=== PATIENT | male | born 1995 | race Caucasian/White ===

== ENCOUNTER → 2020-05-21 | Outpatient (CLI) | payer OTHER ==
[~2020-05-21] MED LIST: IBUP-2029 PO
== END | disposition home or self-care (01) ==
LOC: LAB 16:38
DX: Z01.818 Encounter for other preprocedural examination (principal); Z11.59 Encounter for screening for other viral diseases
CPT/HCPCS: C9803; U0003

== ENCOUNTER 2020-05-23 05:25 | Day surgery (SDC) | payer OTHER ==
[~2020-05-23] VITALS: Ht 170.2 cm; Wt 65.8 kg
[2020-05-23] MEDS ORDERED: LACTATED RINGERS 1,000 ML IV SCH (07:30)
[2020-05-23] MEDS ORDERED: BUPIVACAINE/EPINEPH/PF 0.25%/0.0005 10ML ONE (07:34)
[2020-05-23] MEDS ORDERED: SODIUM CHLORIDE 0.9% 10ML VIAL ONE (07:35)
[2020-05-23] MEDS ORDERED: BACITRACIN 50,000 UNITS/VIAL ONE (07:35)
[2020-05-23] MEDS ORDERED: FENTANYL CITRATE/PF 50MCG/ML 2ML VIAL ONE (09:15)
[2020-05-23] MEDS ORDERED: SUCCINYLCHOLINE CHLORIDE 200MG/10ML IV ONE (09:16)
[2020-05-23] MEDS ORDERED: MIDAZOLAM HCL 2 MG/2 ML VIAL ONE (09:16)
[2020-05-23] MEDS ORDERED: PROPOFOL 200MG/20ML VIAL IV ONE (09:16)
[2020-05-23] MEDS ORDERED: GLYCOPYRROLATE 0.2 MG/ML 2ML VIAL ONE (09:16)
[2020-05-23] MEDS ORDERED: LIDOCAINE HCL 1% 20ML VIAL (Pyxis) INJ ONE (09:16)
[2020-05-23] MEDS ORDERED: ONDANSETRON HCL 4MG/2ML INJ ONE (09:16)
[2020-05-23] MEDS ORDERED: METOCLOPRAMIDE HCL 10MG/2ML VIAL ONE (09:16)
[2020-05-23] MEDS ORDERED: CEFAZOLIN SODIUM 1000MG/VIAL ONE (10:21)
[2020-05-23] MEDS ORDERED: SODIUM CHLORIDE 0.9% 1,000 ML IV ONE (10:34)
[2020-05-23] MEDS ORDERED: MORPHINE SULFATE 2 MG/ML CPJ (NOT FOR IM USE) IV PRN (10:45)
[2020-05-23] MEDS ORDERED: HYDROMORPHONE HCL/PF 2MG/ML CPJ IV PRN (10:45)
[2020-05-23] MEDS ORDERED: ONDANSETRON HCL 4MG/2ML INJ IV PRN (10:45)
[2020-05-23] MEDS ORDERED: MEPERIDINE HCL/PF 25MG/ML CPJ IV PRN (10:45)
[2020-05-23] MEDS ORDERED: HYDROCODONE/ACETAMINOPHEN 10/325MG TABLET PO PRN (11:15)
[2020-07-09] MEDS ORDERED: IBUP-2029 PO (03:45)
== END 2020-05-23 12:20 | disposition home or self-care (01) ==
LOC: OR 05:25
PROVIDERS: ATTEND Orthopaedic Surgery
DX: M70.51 Other bursitis of knee, right knee (principal); M79.89 Other specified soft tissue disorders; Z79.899 Other long term (current) drug therapy; Z98.890 Other specified postprocedural states
CPT/HCPCS: 27340; 87070; 87075; 87102; 87116; 87205; 97116; 97162; J0171; J0330; J0690; J2250; J2405; J2704; J2765; J3010; J3490; Q4051; 88311

== ENCOUNTER 2020-07-29 11:47 | Inpatient (IN) | payer OTHER ==
[~2020-07-29] VITALS: Ht 167.6 cm; Wt 69.0 kg
[~2020-07-29 11:47] MED LIST changes: +INFLUENZA VACCINE 05/PF 0.5 ML VIAL IM ONE
[2020-07-29 13:25] LABS: CHLORIDE 103 mEq/L (98-107)
[2020-07-29 13:42] LABS: BASOPHILS % 0.6 % (0.0-2.0); EOSINOPHILS % 0.8 % (0.0-5.0); HEMATOCRIT. 37.6 % (42.0-52.0); HEMOGLOBIN. 12.7 g/dL (14.0-18.0); LYMPHOCYTES % 15.5 % (20.0-50.0); MEAN CORPUSCULAR HEMOGLOBIN 31.2 pg (28.0-32.0); MEAN CORPUSCULAR VOLUME 92.4 fL (80.0-94.0); MONOCYTES % 5.1 % (2.0-8.0); PLATELET 275 x1000/uL (130-400); RED BLOOD CELL COUNT 4.07 mill/uL (4.7-6.1); RED CELL DISTRIBUTION WIDTH 13.2 % (11.6-14.6)
[2020-07-29 13:54] LABS: PROTHROMBIN TIME 10.4 sec (9.6-11.0)
[2020-07-29] MEDS ORDERED: ACETAMINOPHEN 325MG TABLET PO PRN (15:15)
[2020-07-29 16:00] VITALS: BP 113/53
[2020-07-29] MEDS ORDERED: CHLORHEXIDINE GLUCONATE 4% EXTERNAL USE TOP NR (16:00)
[2020-07-29] MEDS ORDERED: CEFAZOLIN 2,000 MG in DEXT 5% WATER 100 ML IV SCH (16:00)
[2020-07-29 18:20] VITALS: BP 112/74
[2020-07-29] MEDS ORDERED: CEPH-569 PO (18:20)
[2020-07-29 20:00] VITALS: BP 114/70
[2020-07-29] MEDS: CEFAZOLIN 2,000 MG in DEXT 5% WATER 100 ML IV SCH (20:27)
[2020-07-29] MEDS ORDERED: ZOLPIDEM TARTRATE 5MG TABLET PO PRN (21:00)
[2020-07-30] VITALS: BP 117/56
[2020-07-30] MEDS: CEFAZOLIN 2,000 MG in DEXT 5% WATER 100 ML IV SCH ×3 (02:35→18:00)
[2020-07-30 04:00] VITALS: BP 127/69
[2020-07-30 08:00] VITALS: BP 121/60
[2020-07-30 12:00] VITALS: BP 118/72
[2020-07-30] MEDS ORDERED: HYDROCODONE/ACETAMINOPHEN 5/325MG TABLET PO PRN (13:15)
[2020-07-30] MEDS ORDERED: ONDANSETRON HCL 4MG/2ML INJ IV PRN ×3 (13:15→21:30)
[2020-07-30 16:00] VITALS: BP 123/67
[2020-07-30] MEDS ORDERED: FENTANYL CITRATE/PF 50MCG/ML 2ML VIAL ONE (20:01)
[2020-07-30] MEDS ORDERED: ONDANSETRON HCL 4MG/2ML INJ ONE (20:02)
[2020-07-30] MEDS ORDERED: GLYCOPYRROLATE 0.2 MG/ML 2ML VIAL ONE (20:02)
[2020-07-30] MEDS ORDERED: SUCCINYLCHOLINE CHLORIDE 200MG/10ML IV ONE (20:02)
[2020-07-30] MEDS ORDERED: LIDOCAINE HCL 1% 20ML VIAL (Pyxis) INJ ONE (20:02)
[2020-07-30] MEDS ORDERED: MIDAZOLAM HCL 2 MG/2 ML VIAL ONE (20:02)
[2020-07-30] MEDS ORDERED: METOCLOPRAMIDE HCL 10MG/2ML VIAL ONE (20:02)
[2020-07-30] MEDS ORDERED: BACITRACIN 50,000 UNITS/VIAL ONE (20:26)
[2020-07-30] MEDS ORDERED: VANCOMYCIN HCL 1 GM/VIAL ONE (20:40)
[2020-07-30] MEDS ORDERED: SODIUM CHLORIDE 0.9% 1,000 ML IV ONE (21:30)
[2020-07-30] MEDS ORDERED: MORPHINE SULFATE 4 MG/ML CPJ (NOT FOR IM USE) IV PRN (21:30)
[2020-07-30] MEDS ORDERED: MAGNESIUM HYDROXIDE 400MG/5ML 30ML UDC PO PRN (21:30)
[2020-07-30] MEDS ORDERED: ZOLPIDEM TARTRATE 5MG TABLET PO PRN (21:30)
[2020-07-30] MEDS ORDERED: HYDROCODONE/ACETAMINOPHEN 10/325MG TABLET PO PRN (21:30)
[2020-07-30] MEDS ORDERED: CEFAZOLIN 2,000 MG in DEXT 5% WATER 100 ML IV SCH (21:30)
[2020-07-30] MEDS ORDERED: HYDROMORPHONE HCL/PF 2MG/ML CPJ IV PRN (21:30)
[2020-07-30] MEDS ORDERED: ACETAMINOPHEN 325MG TABLET PO PRN (21:30)
[2020-07-30] MEDS ORDERED: MEPERIDINE HCL/PF 25MG/ML CPJ IV PRN ×2 (21:30)
[2020-07-30] MEDS ORDERED: MORPHINE SULFATE 2 MG/ML CPJ (NOT FOR IM USE) IV PRN (21:30)
[2020-07-31] VITALS: BP 116/66
[2020-07-31] MEDS: CEFAZOLIN 2,000 MG in DEXT 5% WATER 100 ML IV SCH ×3 (03:45→21:04)
[2020-07-31 04:00] VITALS: BP 125/69
[2020-07-31 08:00] VITALS: BP 120/68
[2020-07-31] MEDS: DOCUSATE SODIUM 100MG CAPSULE PO SCH ×2 (09:30→17:45)
[2020-07-31 12:00] VITALS: BP 117/70
[2020-07-31 16:00] VITALS: BP 113/71
[2020-07-31 20:00] VITALS: BP 122/58
[2020-08-01] VITALS: BP 119/69
[2020-08-01 04:00] VITALS: BP 121/74
[2020-08-01] MEDS: CEFAZOLIN 2,000 MG in DEXT 5% WATER 100 ML IV SCH ×3 (04:22→17:28)
[2020-08-01 08:00] VITALS: BP 121/71
[2020-08-01] MEDS: DOCUSATE SODIUM 100MG CAPSULE PO SCH ×2 (08:54→17:27)
[2020-08-01 12:00] VITALS: BP 103/60
[2020-08-01 16:00] VITALS: BP 109/66
[2020-08-01 20:00] VITALS: BP 107/62
[2020-08-02] VITALS: BP 107/59
[2020-08-02] MEDS: CEFAZOLIN 2,000 MG in DEXT 5% WATER 100 ML IV SCH ×3 (03:12→17:52)
[2020-08-02 04:00] VITALS: BP 103/57
[2020-08-02 08:00] VITALS: BP 123/80
[2020-08-02] MEDS: DOCUSATE SODIUM 100MG CAPSULE PO SCH ×2 (08:57→16:27)
[2020-08-02 11:01] LABS: BASOPHILS % 0.9 % (0.0-2.0); EOSINOPHILS % 1.9 % (0.0-5.0); HEMATOCRIT. 38.1 % (42.0-52.0); LYMPHOCYTES % 24.9 % (20.0-50.0); MEAN CORPUSCULAR HEMOGLOBIN 31.3 pg (28.0-32.0); MEAN CORPUSCULAR VOLUME 91.6 fL (80.0-94.0); MEAN PLATELET VOLUME 9.9 fl (7.4-10.4); MONOCYTES % 14.2 % (2.0-8.0); NEUTROPHILS % 58.1 % (40.0-76.0); PLATELET 238 x1000/uL (130-400); RED BLOOD CELL COUNT 4.15 mill/uL (4.7-6.1); RED CELL DISTRIBUTION WIDTH 13.2 % (11.6-14.6)
[2020-08-02 11:30] LABS: CHLORIDE 103 mEq/L (98-107)
[2020-08-02 12:00] VITALS: BP 127/70
[2020-08-02 16:00] VITALS: BP 111/63
[2020-08-02] MEDS: SULFAMETHOXAZOLE/TRIMETHOPRIM 800/160MG TABLET PO SCH ×2 (16:27→21:34)
[2020-08-02 20:00] VITALS: BP 125/79
[2020-08-03] VITALS: BP 103/64
[2020-08-03] MEDS: CEFAZOLIN 2,000 MG in DEXT 5% WATER 100 ML IV SCH ×2 (02:59→09:12)
[2020-08-03 04:00] VITALS: BP 115/52
[2020-08-03 07:37] LABS: HEMATOCRIT. 39.1 % (42.0-52.0); HEMOGLOBIN. 13.4 g/dL (14.0-18.0); MEAN CORPUSCULAR HEMOGLOBIN 31.5 pg (28.0-32.0); MEAN CORPUSCULAR VOLUME 91.4 fL (80.0-94.0); MEAN PLATELET VOLUME 9.9 fl (7.4-10.4); PLATELET 239 x1000/uL (130-400); RED BLOOD CELL COUNT 4.27 mill/uL (4.7-6.1)
[2020-08-03 08:00] VITALS: BP 122/74
[2020-08-03 08:11] LABS: CHLORIDE 103 mEq/L (98-107)
[2020-08-03] MEDS: DOCUSATE SODIUM 100MG CAPSULE PO SCH (09:12)
[2020-08-03] MEDS: SULFAMETHOXAZOLE/TRIMETHOPRIM 800/160MG TABLET PO SCH (09:12)
[2020-08-03 10:22] VITALS: BP 123/70
[2020-08-03 12:00] VITALS: BP 117/80
[2020-08-03 13:21] LABS: PLATELET ESTIMATE NORMAL
== END 2020-08-03 11:46 | disposition home or self-care (01) | DRG 501 ==
LOC: ER 11:47 → ENRESERV 14:45 → 6EST 16:00
PROVIDERS: ADMIT Internal Medicine; ATTEND Internal Medicine
PROC: 0LQ30ZZ Repair Right Upper Arm Tendon, Open Approach (ICD-10-PCS; principal; 2020-07-30)
PROC: 0MBN0ZZ Excision of Right Knee Bursa and Ligament, Open Approach (ICD-10-PCS; 2020-07-30)
PROC: 2W3QXYZ Immobilization of Right Lower Leg using Other Device (ICD-10-PCS; 2020-07-30)
PROC: 0YQF0ZZ Repair Right Knee Region, Open Approach (ICD-10-PCS; 2020-07-30)
DX: M71.161 Other infective bursitis, right knee (principal); T81.31XA Disruption of external operation (surgical) wound, not elsewhere classified, initial encounter; T63.301A Toxic effect of unspecified spider venom, accidental (unintentional), initial encounter; B96.1 Klebsiella pneumoniae [K. pneumoniae] as the cause of diseases classified elsewhere; Y83.8 Other surgical procedures as the cause of abnormal reaction of the patient, or of later complication, without mention of misadventure at the time of the procedure; Y92.89 Other specified places as the place of occurrence of the external cause; Z79.899 Other long term (current) drug therapy
CPT/HCPCS: 36415; 80048; 80053; 85025; 87070; 87075; 87077; 87186; 87426; 88304; 90686; 93005; 99285; J0330; J0690; J2250; J2405; J2765; J3010; J3370; J3490; J7060; L1830